=== PATIENT | female | born 1985 | race Caucasian/White ===

== ENCOUNTER 2016-07-15 02:20 | Inpatient (IN) | payer OTHER ==
[~2016-07-15] VITALS: Ht 162.6 cm; Wt 79.4 kg
[2016-07-15] VITALS (7 sets, daily range): BP systolic 100–122; BP diastolic 50–59; PULSE 74–104; RESP 16–20; Ht 162.6 cm; Wt 79.4 kg
[~2016-07-15 02:20] MED LIST: CLON1TAB3 PO; LAMO100T PO; LURA40TA PO
[2016-07-15] MEDS ORDERED: PREN1TAB79 PO (03:03)
[2016-07-15] MEDS ORDERED: FOLI0.8C PO (03:03)
[2016-07-15] MEDS ORDERED: FERR325C PO (03:03)
[2016-07-15] MEDS ORDERED: OXYTOCIN 30 UNITS/LR 500 ML IV PRN (03:30)
[2016-07-15] MEDS ORDERED: LIDOCAINE 1% (MPF) 30 ML INJ INJ PRN (03:30)
[2016-07-15] MEDS ORDERED: IBUPROFEN 600 MG TAB PO PRN (03:30)
[2016-07-15] MEDS ORDERED: BUTORPHANOL 2 MG INJ IV PRN (03:30)
[2016-07-15] MEDS ORDERED: METHYLERGONOVINE 0.2 MG INJ IM PRN (03:30)
[2016-07-15] MEDS ORDERED: MISOPROSTOL 200 MCG TAB PR PRN (03:30)
[2016-07-15] MEDS ORDERED: OXYTOCIN 30 UNITS/LR 500 ML IV SCH ×3 (03:30→10:00)
[2016-07-15] MEDS ORDERED: CARBOPROST 250 MCG INJ IM PRN (03:30)
[2016-07-15] MEDS ORDERED: LACTATED RINGER'S 1,000 ML IV PRN (03:30)
[2016-07-15 03:58] LABS: BASOPHIL # 0.1 10^3/ul (0.0-0.1); BASOPHILS % 0.4 % (0.0-2.0); EOSINOPHILS # 0.2 10^3/ul (0.0-0.5); EOSINOPHILS % 1.4 % (0.0-7.0); HEMATOCRIT 35.8 % (37.0-47.0); HEMOGLOBIN 11.9 g/dl (12.0-16.0); LYMPHOCYTES # 2.4 10^3/ul (0.8-2.9); LYMPHOCYTES % 17.3 % (15.0-51.0); MEAN CORPUSCULAR HEMOGLOBIN 27.7 pg (29.0-33.0); MEAN CORPUSCULAR HGB CONC 33.4 g/dl (32.0-37.0); MEAN CORPUSCULAR VOLUME 83.1 fl (82.0-101.0); MEAN PLATELET VOLUME 8.6 fl (7.4-10.4); MONOCYTE # 0.9 10^3/ul (0.3-0.9); MONOCYTES % 6.8 % (0.0-11.0); NEUTROPHIL # 10.2 10^3/ul (1.6-7.5); NEUTROPHILS % 74.1 % (39.0-77.0); PLATELET COUNT 239 10^3/UL (140-440); RED BLOOD COUNT 4.31 10^6/ul (4.20-5.40); RED CELL DISTRIBUTION WIDTH 14.6 % (11.5-14.5); UNCORRECTED WBC 13.8 10^3/ul (4.8-10.8); WHITE BLOOD COUNT 13.8 10^3/ul (4.8-10.8)
[2016-07-15 04:06] LABS: CONDITION 1; LH ANALYZER COMMENTS 1
[2016-07-15 04:08] LABS: INR 1.01; PARTIAL THROMBOPLASTIN TIME 27.1 Sec (25.0-35.0); PROTIME 13.3 Sec (12.2-14.2)
[2016-07-15 04:15] LABS: GLUCOSE 87 mg/dl (70-220)
--- NOTE | 2016-07-15 05:59 | TRIAGE ---
OB Triage Datetime Report Generated by CPN: 07/15/2016 05:59 Datetime: 07/15/2016 05:00 Stage of : Labor Maternal Assessment Level of Consciousness: Fully Conscious DTR's/Clonus: DTRs 2+; No Clonus Headache: Denies Breath Sounds, Left: Clear and Equal Breath Sounds, Right: Clear and Equal Nausea/Vomiting: Denies RUQ Epigastric Pain: Denies Labor Evaluation Frequency: 2-3 Monitor Mode: External Duration (sec)2399: 60-70 Quality: Moderate Pattern: Normal: <= 5 Contractions in 10 Minutes Resting Tone [place]: Relaxed Heart Rate FHR Baseline Rate: 135 Monitor Mode: External US FHR Baseline Changes: No Baseline Change Variability: Moderate 6-25 bpm Accelerations: 15X15 Decelerations: None Category: Category I Datetime: 07/15/2016 04:00 Stage of : Labor Assessment Type: Admission Assessment Maternal Assessment Level of Consciousness: Fully Conscious DTR's/Clonus: DTRs 2+; No Clonus Headache: Denies Blurred Vision: No Respiratory Effort: Unlabored; Regular Rhythm; Equal Expansion Breath Sounds, Left: Clear and Equal Breath Sounds, Right: Clear and Equal Nausea/Vomiting: Denies RUQ Epigastric Pain: Denies Lower Extremities Edema: None Degree: None Upper Extremities Edema: None Degree: None Facial Edema: None Temperature Route: Oral Fall Risk Assessment History of Falling: (0) No Secondary Diagnosis: (0) No Ambulatory Aid: (0) Bedrest/Nurse Assist IV Therapy: (0) No Gait: (0) Normal/Bedrest/Immobile Mental Status: (0) Oriented to Own Ability Fall Score: 0 Fall Risk Score Definition: No Risk: No action required Labor Evaluation Frequency: 2-4 Monitor Mode: External Duration (sec)2399: 60-70 Quality: Moderate Pattern: Normal: <= 5 Contractions in 10 Minutes Resting Tone [place]: Relaxed Heart Rate FHR Baseline Rate: 135 Monitor Mode: External US FHR Baseline Changes: No Baseline Change Variability: Moderate 6-25 bpm Accelerations: 15X15 Decelerations: None Category: Category I Datetime: 07/15/2016 03:00 Labor Evaluation Frequency: Irregular Monitor Mode: External Duration (sec)2399: 40-50 Quality: Mild Pattern: Normal: <= 5 Contractions in 10 Minutes Resting Tone [place]: Relaxed Heart Rate FHR Baseline Rate: 130 Monitor Mode: External US Variability: Minimal - Undetectable to <=5 bpm Accelerations: 15X15 (Annotations: x1) Decelerations: None Category: Category II Datetime: 07/15/2016 02:57 Stage of : OB Triage Datetime: 07/15/2016 02:49 Vaginal Exam Dilatation (cms): 1.5 Datetime: 07/15/2016 02:47 Vaginal Exam Dilatation (cms): 1.5 Effacement (%): 60 Station: -2 Exam By: BRENNAN Fernando Membrane Status: Meconium Membranes Ruptured Date/Time: 07/15/2016 01:30 Membranes Rupture Method: Spontaneous Amniotic Fluid Color: Heavy Meconium Amniotic Fluid Amount: Large Amniotic Fluid Odor: Normal Cervix, Consistency: Moderate Cervix, Position: Posterior Datetime: 07/15/2016 02:44 Stage of : OB Triage Temperature Route: Oral Pain Assessment Pain Scale: 7 Pain Presence: Intermittent Pain Type: Cramping; Contraction Pain Location: Abdomen; Back Pain Relief Measures: Comfort Measures Datetime: 07/15/2016 02:40 Stage of : OB Triage Assessment Type: Triage Time of Arrival: 07/15/2016 02:20 EGA: 39.1 Arrived By: Wheelchair Arrived From: Home Chief Complaint: SROM @0130 with uc's q3-5mins Movement: Present Contractions: Regular Time Contractions Began: 07/15/2016 01:30 Contractions: q3-5mins Rupture of Membranes: Ruptured Vaginal Bleeding: None Vaginal Discharge: Present Abdominal Trauma: Not Applicable Patient Complaints: Contractions; Cramping; Back Pain; Other Additional Patient Complaints: SROM Time Provider Notified: 07/15/2016 02:57 Provider Notified: Initial Plan: EFM x2, SVE Maternal Assessment Level of Consciousness: Fully Conscious DTR's/Clonus: DTRs 2+; No Clonus Headache: Denies Blurred Vision: No Respiratory Effort: Unlabored; Regular Rhythm; Equal Expansion Breath Sounds, Left: Clear and Equal Breath Sounds, Right: Clear and Equal Nausea/Vomiting: Denies RUQ Epigastric Pain: Denies Lower Extremities Edema: None Degree: None Upper Extremities Edema: None Degree: None Facial Edema: None Fall Risk Assessment History of Falling: (0) No Secondary Diagnosis: (0) No Ambulatory Aid: (0) Bedrest/Nurse Assist IV Therapy: (0) No Gait: (0) Normal/Bedrest/Immobile Mental Status: (0) Oriented to Own Ability Fall Score: 0 Fall Risk Score Definition: No Risk: No action required Monitor Mode: External Contraction Comments: [place] applied Heart Rate FHR Baseline Rate: 130 Monitor Mode: External US Comments: EFM applied
[2016-07-15] MEDS ORDERED: FENTAnyl 2MCG/ML-ROPIV 0.2% 100 ML ONE (08:00)
[2016-07-15] MEDS: LACTATED RINGER'S 1,000 ML IV SCH ×2 (08:43→11:07)
[2016-07-15] MEDS: FENTAnyl 2MCG/ML-ROPIV 0.2% 100 ML BAG EPI SCH ×3 (09:45→18:02)
[2016-07-15] MEDS ORDERED: NALOXONE (0.4 MG/ML) INJ IV PRN (10:00)
[2016-07-15] MEDS ORDERED: DIPHENHYDRAMINE 50 MG INJ IV PRN (10:00)
[2016-07-15] MEDS ORDERED: ONDANSETRON 4 MG INJ IV PRN (10:00)
[2016-07-15] MEDS ORDERED: DEXTROSE 5%-LR 1,000 ML IV PRN (13:30)
--- NOTE | 2016-07-15 19:58 | HP ---
Date/Time of Note Date/Time of Note DATE: 07/15/16 TIME: 19:45 OB - History Hx of Present Free Text/Dictation 30yo A2 to triage after srom (poss mec stained) with u.c known to have gdm bs controlled with diet hx of x2 tx for chlamydia whether reinfected ? admitted for expectant management Estimated Due Date: Jul 21, 2016 : 3 Para: 0 Spontaneous : 0 Therapeutic : 2 Care: Good Care Ultrasounds: Normal mid trimester US Obstetrical Complications: Gestational Diabetes Medical Complications: Genitourinary (chlamydia infection) Past Family/Social History * Past Medical, Surgical, Family and Obstetric Histories reviewed from chart. Blood Type: O+ Rubella: immune RPR/VDRL: Negative GBS Status: Negative HBsAG: Negative OB Admission Exam Vital Signs Vital Signs Vital Signs Date Time Temp Pulse Resp B/P Pulse Ox O2 Delivery O2 Flow Rate FiO2 07/15/16 03:05 97.7 78 20 109/53 Room Air Physical Exam HEENT: WNL Heart: Rhythm Normal Lungs: Clear, Equal Abdomen: WNL Extremities: Normal Reflexes: Normal Cervical Dilatation: 1cm Effacement: 50% Station: -2 Amniotic Fluid: Thin Meconium Heart Rate: 130's Decelerations: No Decelerations Varibility: Minimum Contractions on Admission: >10 Minutes Apart Intensity: Mild Last 72 hourBlood Glucose Bedside Glucose - 72 Hours Test 07/15/16 09:12 07/15/16 13:06 07/15/16 17:03 Bedside Glucose 105mg/dL (70-220) 87mg/dL (70-220) 107mg/dL (70-220) Last 72 hours Lab Results CBC & BMP 07/15/16 03:20 OB Assessment/Plan Reason for admission: other Other Assessment: iup 39w srom in early labor Plan: Expectant Management MARTIR CAMACHO MD Jul 15, 2016 19:55
--- NOTE | 2016-07-15 20:39 | LDN ---
Date/Time of Note Date/Time of Note DATE: 07/15/16 TIME: 20:35 Delivery Summary Placenta Delivered: Spontaneously Meconium: Thick Perineum intact?: No Perineal laceration repair: mle no laceration Anesthesia type: Local Estimated blood loss: 200 Sponge & Needle done & correct: Yes All needle counts correct: Yes Any foreign bodies felt in the: No Problems: Delivery Information Sex Sex: female Apgars 1 Minute: 8 5 Minute: 9 Suctioning Nose & mouth suctioned at jamaal: Yes Delee suction performed: No Umbilical Cord Umbilical cord with: 3 Vessels Cord presentations: no nuchal cord Cord Blood was obtained: Yes Mother & Baby Disposition Disposition Mom & Baby to Maternity; Good: Yes Mom transferred to: Other () Baby to NICU: No MARTIR CAMACHO MD Jul 15, 2016 20:38
[2016-07-16] MEDS ORDERED: OXYCODONE/ASPIRIN (4.88/325) TAB PO PRN
[2016-07-16] MEDS ORDERED: OXYTOCIN 30 UNITS/LR 500 ML IV PRN
[2016-07-16] MEDS ORDERED: MISOPROSTOL 200 MCG TAB PR PRN
[2016-07-16] MEDS ORDERED: CARBOPROST 250 MCG INJ IM PRN
[2016-07-16] MEDS ORDERED: METHYLERGONOVINE 0.2 MG INJ IM PRN
[2016-07-16] MEDS ORDERED: ZOLPIDEM 5 MG TAB PO PRN
[2016-07-16] MEDS ORDERED: LANOLIN 7 GM TUBE TOP PRN
[2016-07-16] MEDS: OXYCODONE/ASPIRIN (4.88/325) TAB PO PRN ×5 (00:02→19:40)
[2016-07-16] MEDS: WITCH HAZEL/GLYCERIN PAD PR PRN (00:03)
[2016-07-16] MEDS: BENZOCAINE 20% 56 ML SPRAY TOP PRN (00:03)
[2016-07-16 04:10] VITALS: BP 128/56; PULSE 75; RESP 20
[2016-07-16] MEDS: IBUPROFEN 600 MG TAB PO SCH ×5 (05:29→23:47)
[2016-07-16 07:46] LABS: BASOPHILS % 0.1 % (0.0-2.0); EOSINOPHILS % 0.1 % (0.0-7.0); HEMATOCRIT 30.5 % (37.0-47.0); HEMOGLOBIN 10.3 g/dl (12.0-16.0); LYMPHOCYTES # 1.9 10^3/ul (0.8-2.9); MEAN CORPUSCULAR HEMOGLOBIN 28.2 pg (29.0-33.0); MEAN CORPUSCULAR HGB CONC 33.8 g/dl (32.0-37.0); MEAN CORPUSCULAR VOLUME 83.5 fl (82.0-101.0); MEAN PLATELET VOLUME 7.8 fl (7.4-10.4); MONOCYTE # 1.2 10^3/ul (0.3-0.9); MONOCYTES % 5.8 % (0.0-11.0); NEUTROPHIL # 18.4 10^3/ul (1.6-7.5); PLATELET COUNT 219 10^3/UL (140-440); RED BLOOD COUNT 3.66 10^6/ul (4.20-5.40); RED CELL DISTRIBUTION WIDTH 14.6 % (11.5-14.5); UNCORRECTED WBC 21.6 10^3/ul (4.8-10.8); WHITE BLOOD COUNT 21.6 10^3/ul (4.8-10.8)
[2016-07-16 07:56] LABS: CONDITION 1; LH ANALYZER COMMENTS 1
[2016-07-16 08:15] VITALS: BP 100/69; PULSE 86; RESP 20
[2016-07-16] MEDS: SENNA/DOCUSATE NA (8.6MG/50MG) TAB PO SCH ×2 (10:00→21:23)
[2016-07-16 11:52] VITALS: BP 99/57; PULSE 70; RESP 19
[2016-07-16 12:57] LABS: OPIATES Negative (NEGATIVE)
[2016-07-16 12:58] LABS: BARBITURATES NEGATIVE (NEGATIVE); BENZODIAZEPINES NEGATIVE (NEGATIVE); CANNABINOIDS NEGATIVE (NEGATIVE)
[2016-07-16 12:59] LABS: COCAINE NEGATIVE (NEGATIVE)
[2016-07-16 17:35] VITALS: BP 103/63; PULSE 95; RESP 20
--- NOTE | 2016-07-16 17:58 | PN ---
Date/Time of Note Date/Time of Note DATE: 07/16/16 TIME: 17:57 OB Subjective Subjective Subjective no c/o OB Objective Objective Objective vss afebrile fundus firm non tender lochia min ext neg OB Assessment/Plan Other Assessment: stable post vaginal delivery Other plan: d/s home in am MARTIR CAMACHO MD Jul 16, 2016 17:58
[2016-07-16 19:40] VITALS: BP 120/63; PULSE 80; RESP 18
[2016-07-17] MEDS: OXYCODONE/ASPIRIN (4.88/325) TAB PO PRN ×2 (00:46→09:03)
[2016-07-17 03:45] VITALS: BP 108/55; PULSE 72; RESP 19
[2016-07-17] MEDS: IBUPROFEN 600 MG TAB PO SCH ×2 (05:37→12:43)
[2016-07-17 06:29] LABS: BASOPHIL # 0.1 10^3/ul (0.0-0.1); BASOPHILS % 0.4 % (0.0-2.0); EOSINOPHILS # 0.3 10^3/ul (0.0-0.5); HEMATOCRIT 30.1 % (37.0-47.0); HEMOGLOBIN 10.1 g/dl (12.0-16.0); LYMPHOCYTES # 3.6 10^3/ul (0.8-2.9); LYMPHOCYTES % 27.7 % (15.0-51.0); MEAN CORPUSCULAR HEMOGLOBIN 28.2 pg (29.0-33.0); MEAN CORPUSCULAR HGB CONC 33.7 g/dl (32.0-37.0); MEAN CORPUSCULAR VOLUME 83.7 fl (82.0-101.0); MEAN PLATELET VOLUME 8.4 fl (7.4-10.4); MONOCYTE # 0.9 10^3/ul (0.3-0.9); MONOCYTES % 7.2 % (0.0-11.0); NEUTROPHIL # 8.2 10^3/ul (1.6-7.5); NEUTROPHILS % 62.7 % (39.0-77.0); PLATELET COUNT 202 10^3/UL (140-440); RED CELL DISTRIBUTION WIDTH 14.4 % (11.5-14.5)
[2016-07-17 06:43] LABS: CONDITION 1
[2016-07-17 08:00] VITALS: BP 110/58; PULSE 86; RESP 20
[2016-07-17] MEDS ORDERED: DIPHTH/TET/ACEL PERTUSS (ADULT) 0.5 ML VIAL IM* ONE (09:00)
[2016-07-17] MEDS: SENNA/DOCUSATE NA (8.6MG/50MG) TAB PO SCH (09:04)
--- NOTE | 2016-07-17 09:14 | PD.PPDC ---
[facility] Discharge Instruction Diagnosis Final Diagnosis: s/p normal vaginal delivery Condition Patient Condition: Stable Diet Diet: Resume Regular Diet Activity/Restrictions Activity: May Shower Restrictions: No Lifting No Sexual Activity Nothing in the Vagina No [place] No Tampons, douche Follow-up Follow-up with Physician: 6, Week/Weeks Return to clinic for [facility] Instructions: Fever greater than 101 Chills Worsening abdominal pain Excessive Vaginal Bleeding More than 2 pads per hour Unable to tolerate diet OB Instructions: Breast Tenderness Depression Blurried Vision Headache MARTIR CAMACHO MD Jul 17, 2016 09:14
--- NOTE | 2016-07-17 09:18 | DS ---
Date/Time of Note Date/Time of Note DATE: 07/17/16 TIME: 09:16 Obstetrical Discharge Record Final Diagnosis Final Diagnosis: Term delivered Vaginal Delivery Obstetrical Delivery: Spontaneous, Episiotomy, Repaired Complications Gestational Diabetes Augmentation: No Condition on Discharge Physical Assessment Last Vitals: vss afebrile Voiding: Yes Bowel Movement: Yes Breast: Soft, non-tender Episiotomy: ok Calf Tenderness: No Patient Condition: Stable MARTIR CAMACHO MD Jul 17, 2016 09:18
[2016-07-17] MEDS: BENZOCAINE 20% 56 ML SPRAY TOP PRN (10:44)
[2016-07-17] MEDS: WITCH HAZEL/GLYCERIN PAD PR PRN (10:44)
[2016-07-17 15:30] VITALS: BP 125/64; PULSE 83; RESP 20
== END 2016-07-17 16:40 | disposition home or self-care (01) | DRG 775 ==
LOC: L-D 02:20 → OBT 02:20 → L-D 02:57 → OBT 02:57 → L-D 09:39 → PP1 22:44
PROVIDERS: ADMIT Obstetrics & Gynecology; ATTEND Obstetrics & Gynecology
PROC: 10E0XZZ Delivery of Products of Conception, External Approach (ICD-10-PCS; principal; 2016-07-15)
PROC: 3E00X4Z Introduction of Serum, Toxoid and Vaccine into Skin and Mucous Membranes, External Approach (ICD-10-PCS; 2016-07-17)
DX: O24.429 Gestational diabetes mellitus in childbirth, unspecified control (principal); Z23 Encounter for immunization; Z3A.39 39 weeks gestation of pregnancy; Z37.0 Single live birth
CPT/HCPCS: 62319; 80307; 82947; 82962; 85025; 85610; 85730; 86592; 86900; 86901; 87340; 90715; 99464; G0463; J2590; J3010; J7120

== ENCOUNTER 2017-03-27 20:32 | Emergency (ER) | payer OTHER ==
[~2017-03-27] VITALS: Ht 162.6 cm; Wt 70.0 kg
[~2017-03-27 20:32] MED LIST changes: -CLON1TAB3 PO; +FERR325C PO; +FOLI0.8C PO; -LAMO100T PO; -LURA40TA PO; +PREN1TAB79 PO
[2017-03-27 20:39] VITALS: Ht 162.6 cm; Wt 70.0 kg
[2017-03-27] MEDS ORDERED: AMOX1TAB10 PO (21:24)
[2017-03-27] MEDS ORDERED: HYDR-906 PO (21:24)
[2017-03-27] MEDS ORDERED: DOCU-144 PO (21:25)
--- NOTE | 2017-03-27 21:31 | ERD ---
ER Documentation Chief Complaint Date/Time DATE: 03/27/17 TIME: 21:27 Chief Complaint RIGHT EAR PAIN, TOOTHACHE HPI Patient is a 31 year old female with friend presents with right sided dental pain x 1 week. States she has an appointment for the dentist but it's not for another 3 weeks. Denies fever or chills. States painful to apply pressure on that tooh. Denies difficulty breathing, speaking or swallowing. Denies face pain , eye pain, headache, dizziness. ROS All systems reviewed and are negative except as per history of present illness. Medications Home Meds Active Scripts Docusate Sodium* (Colace*) 100 Mg Capsule, 100 MG PO TID, #30 CAP Prov:TOMEKA MURCIA PA-C 03/27/17 Hydrocodone/Acetaminophen ([place] 5-325 Tablet) 1 Each Tablet, 1 TAB PO Q6H Y for PAIN, #7 TAB Prov:TOMEKA MURCIA PA-C 03/27/17 Amoxicillin/Potassium Clav (Amox-Clav 875-125 mg Tablet) 875-125 mg Tab, 1 TAB PO BID for 7 Days, #14 TAB Prov:TOMEKA MURCIA PA-C 03/27/17 Reported Medications Folic Acid (Folic Acid) 0.8 Mg Capsule, 0.8 MG PO DAILY, CAP 07/15/16 Ferrous Sulfate (Iron) 325 Mg Capsule.er, 325 MG PO DAILY, CAP 07/15/16 Vit W-Ca,Fe,FA(<1 mg) ( Vitamins) 1 Each Tablet, 1 EACH PO DAILY, TAB 07/15/16 Allergies Allergies: Coded Allergies: No Known Drug Allergies (Verified Allergy, Mild, 07/15/16) PMhx/Soc History of Surgery: Yes (NECK/LYMPH NODES) Anesthesia Reaction: No Hx Neurological Disorder: No Hx Respiratory Disorders: No Hx Cardiac Disorders: No Hx Psychiatric Problems: Yes (depression, schitrophrenia) Hx Miscellaneous Medical Probl: No Hx Alcohol Use: Yes (rarely) Hx Substance Use: Yes (marijuana, meth) Hx Tobacco Use: Yes FmHx Family History: No coronary disease, No diabetes, No other Physical Exam Vitals Vital Signs Date Time Temp Pulse Resp B/P Pulse Ox O2 Delivery O2 Flow Rate FiO2 03/27/17 20:39 98.2 91 20 124/57 98 Physical Exam GENERAL: Well-developed, well-nourished femaleAppears in no acute distress. HEAD: Normocephalic, atraumatic. EYES: Pupils are equally reactive bilaterally. EOMs grossly intact. No conjunctival erythema. ENT: Moist mucous membranes. No uvula deviation. No kissing tonsils. No exudates. pain to lower right molar with no signs of abscess or swelling. no mastoid tenderness. NECK: Supple. No lymphadenopathy or thyromegaly. No meningismus. negative kernig. negative brudinski. LUNG: Clear to auscultation bilaterally. No rhonchi, wheezing, rales or coarse breath sounds. HEART: Regular rate and rhythm. No murmurs, rubs or gallops. Extremities: Equal pulses bilaterally. No peripheral clubbing, cyanosis or edema. No unilateral leg swelling. NEUROLOGIC: Alert and oriented. Moving all four extremities. 5/5 strength in all extremities. Normal speech. Steady gait. SKIN: Normal color. Warm and dry. No rashes or lesions. Capillary refill < 2 seconds Procedures/MDM ER COURSE: I kept the patient and/or family informed of laboratory and diagnostic imaging results throughout the emergency room course. MEDICAL DECISION MAKING: This is a [31 year old female who presents with dental pain x 1 week Vital signs were reviewed. Patient is afebrile. Patient is not hypoxic. Low suspicion for dental abscess, mastoiditis, peritonsillar abscess, sepsis. DISCHARGE: At this time, patient is stable for discharge and outpatient management with no new complaints during the ER course. Patient was sent home with stephani calderon and to follow up with dentist. names of dentist given to patient. Patient will be discharged home with instructions to recheck for new or worsening symptoms such as fever, nausea, weakness, LOC and to follow up with primary care in the next 1-2 days. Patient was advised to return to the ER for any new or worsening symptoms. Plan was discussed and patient and/or family understands and agrees. Home instructions were given. Departure Diagnosis: Primary Impression: Pain, dental Condition: Stable Patient Instructions: Dental Pain Referrals: [facility] ([facility] walk in clinic) Additional Instructions: Call your primary care doctor TOMORROW for an appointment during the next 1-2 days.See the doctor sooner or return here if your condition worsens before your appointment time. TOMEKA MURCIA PA-C Mar 27, 2017 21:31
== END 2017-03-27 22:06 | disposition home or self-care (01) ==
LOC: FTE 20:32
DX: K08.89 Other specified disorders of teeth and supporting structures (principal)
CPT/HCPCS: 99284

== ENCOUNTER 2019-02-18 10:01 | Emergency (ER) | payer SELFPAY ==
[~2019-02-18] VITALS: Wt 60.0 kg
[~2019-02-18 10:01] MED LIST changes: +AMOX1TAB10 PO; +BEN25 PO; +DOCU-144 PO; +HYDR-4011 PO; +IBUP-1542 PO; +PRED20TA PO
[2019-02-18 10:15] VITALS: BP 116/56; PULSE 78; RESP 18
--- NOTE | 2019-02-18 10:31 | ERD ---
ER Documentation Chief Complaint Chief Complaint RIGHT THIGH POSSIBLE INSECT BITE HPI 33-year-old female presents ED complaining of a bug bite on her right thigh x2 days. She denies any fevers or chills. She denies any dyspnea or shortness of breath or signs of respiratory distress. She states that it itches and is slight tenderness. She read online that bug bites can get affected and she got concerned so she wanted to come to the emergency department to get an evaluation. She denies any other past medical history. ROS All systems reviewed and are negative except as per history of present illness. Medications Home Meds Active Scripts Ibuprofen* (Motrin*) 600 Mg Tab, 600 MG PO Q6H PRN for PAIN AND OR ELEVATED TEMP, #30 TAB Prov:DANK LOPEZ PA-C 02/18/19 Prednisone* (Prednisone*) 20 Mg Tab, 60 MG PO DAILY for 4 Days, TAB Prov:DANK LOPEZ PA-C 02/18/19 Diphenhydramine Hcl* (Benadryl*) 25 Mg Cap, 25 MG PO Q6 PRN for ITCHING/RASH, #30 TAB Prov:DANK LOPEZ PA-C 02/18/19 Docusate Sodium* (Colace*) 100 Mg Capsule, 100 MG PO TID, #30 CAP Prov:TOMEKA MURCIA PA-C 03/27/17 Hydrocodone/Acetaminophen ([place] 5-325 Tablet) 1 Each Tablet, 1 TAB PO Q6H PRN for PAIN, #7 TAB Prov:TOMEKA MURCIA PA-C 03/27/17 Amoxicillin/Potassium Clav (Amox-Clav 875-125 mg Tablet) 875-125 mg Tab, 1 TAB PO BID for 7 Days, #14 TAB Prov:TOMEKA MURCIA PA-C 03/27/17 Reported Medications Folic Acid (Folic Acid) 0.8 Mg Capsule, 0.8 MG PO DAILY, CAP 07/15/16 Ferrous Sulfate (Iron) 325 Mg Capsule.er, 325 MG PO DAILY, CAP 07/15/16 Vit W-Ca,Fe,FA(<1 mg) ( Vitamins) 1 Each Tablet, 1 EACH PO DAILY, TAB 07/15/16 Allergies Allergies: Coded Allergies: No Known Drug Allergies (Verified Allergy, Mild, 07/15/16) PMhx/Soc History of Surgery: Yes (NECK/LYMPH NODES) Anesthesia Reaction: No Hx Neurological Disorder: No Hx Respiratory Disorders: No Hx Cardiac Disorders: No Hx Psychiatric Problems: Yes (depression, schizophrenia) Hx Miscellaneous Medical Probl: No Hx Alcohol Use: Yes (rarely) Hx Substance Use: No Hx Tobacco Use: No Smoking Status: Former smoker FmHx Family History: No diabetes Physical Exam Vitals Vital Signs Date Temp Pulse Resp B/P (MAP) Pulse Ox O2 O2 Flow FiO2 Time Delivery Rate 02/18/19 98.1 78 18 116/56 99 10:15 (76) Physical Exam Const: No acute distress Head: Atraumatic Resp: Clear to auscultation bilaterally Cardio: Regular rate and rhythm Abd: Soft, non tender, non distended. Skin: Small 5 cm bug bite on the right anterior thigh. No bleeding, no discharge, no signs of infection Neur: Awake and alert Psych: Normal Mood and Affect Procedures/MDM ED COURSE: The patient was stable throughout ED course. I kept the patient informed of laboratory and diagnostic imaging results throughout the ED course. MEDICAL DECISION MAKING: Patient is a 33-year-old female presenting with a bug bite x1 to 2 days. H&P and other data not c/w emergent rash (eg. SJS/TEN, meningococcemia, Kaw[place]akis). I have low suspicion for any signs of infection. Bug bite is present and appears like it is healing well. No signs of infection. No discharge, slight erythema. Patient will be treated on outpatient basis with Benadryl and prednisone. Patient given strict return ED precautions if symptoms persist or worsen. All questions answered. Vital signs were reviewed. Patient is afebrile. Patient was not hypoxic. Patient was hemodynamically stable. Patient was told to follow up with primary care for further care and management. PRESCRIPTION: Benadryl, prednisone DISCHARGE: At this time, patient is stable for discharge and outpatient management. I have instructed the patient to follow-up with their primary care physician in 1-2 days. I have discussed with the patient the possibility of needing to see a specialist for further workup and imaging studies if symptoms persist. I have instructed the patient to promptly return to the ER for any new or worsening symptoms including increased pain, fever, nausea, vomiting, weakness or LOC. The patient expressed understanding of and agreement with this plan. All questions were answered. Home care instructions were provided. Disclaimer: Inadvertent spelling and grammatical errors are likely due to EHR/dictation software use and do not reflect on the overall quality of patient care. Also, please note that the electronic time recorded on this note does not necessarily reflect the actual time of the patient encounter. Departure Diagnosis: Primary Impression: Insect bite Encounter type: initial encounter Site of insect bite: thigh Laterality: right Qualified Codes: S70.361A - Insect bite (nonvenomous), right thigh, initial encounter; W57.XXXA - Bitten or stung by nonvenomous insect and other nonvenomous arthropods, initial encounter Condition: Good Patient Instructions: Insect Bite Referrals: [facility] YOU HAVE RECEIVED A MEDICAL SCREENING EXAM AND THE RESULTS INDICATE THAT YOU DO NOT HAVE A CONDITION THAT REQUIRES URGENT TREATMENT IN THE EMERGENCY DEPARTMENT. FURTHER EVALUATION AND TREATMENT OF YOUR CONDITION CAN WAIT UNTIL YOU ARE SEEN IN YOUR DOCTORS OFFICE WITHIN THE NEXT 1-2 DAYS. IT IS YOUR RESPONSIBILITY TO MAKE AN APPOINTMENT FOR FOLOW-UP CARE. IF YOU HAVE A PRIMARY DOCTOR --you should call your primary doctor and schedule an appointment IF YOU DO NOT HAVE A PRIMARY DOCTOR YOU CAN CALL OUR PHYSICIAN REFERRAL HOTLINE AT IF YOU CAN NOT AFFORD TO SEE A PHYSICIAN YOU CAN CHOSE FROM THE FOLLOWING COMMUNITY [facility] [address] [facility] [address] [facility] [address] [facility] [address] [facility] [facility] [address] [facility]. [facility]. [address] [facility] [facility] YOU HAVE RECEIVED A MEDICAL SCREENING EXAM AND THE RESULTS INDICATE THAT YOU DO NOT HAVE A CONDITION THAT REQUIRES URGENT TREATMENT IN THE EMERGENCY DEPARTMENT. FURTHER EVALUATION AND TREATMENT OF YOUR CONDITION CAN WAIT UNTIL YOU ARE SEEN IN YOUR DOCTORS OFFICE WITHIN THE NEXT 1-2 DAYS. IT IS YOUR RESPONSIBILITY TO MAKE AN APPOINTMENT FOR FOLOW-UP CARE. IF YOU HAVE A PRIMARY DOCTOR --you should call your primary doctor and schedule and appointment IF YOU DO NOT HAVE A PRIMARY DOCTOR YOU CAN CALL OUR PHYSICIAN REFERRAL HOTLINE AT . IF YOU CAN NOT AFFORD TO SEE A PHYSICIAN YOU CAN CHOSE FROM THE FOLLOWING [facility] INSTITUTIONS: [facility] [address] [place] [address] [facility] [address] [place] [address] [facility] [address] [place] [address] Additional Instructions: Call your primary care doctor TOMORROW for an appointment during the next 1-2 days.See the doctor sooner or return here if your condition worsens before your appointment time. DANK LOPEZ PA-C Feb 18, 2019 10:31
== END 2019-02-18 11:00 | disposition home or self-care (01) ==
LOC: FTE 10:01
DX: S70.361A Insect bite (nonvenomous), right thigh, initial encounter (principal); W57.XXXA Bitten or stung by nonvenomous insect and other nonvenomous arthropods, initial encounter; Y92.9 Unspecified place or not applicable
CPT/HCPCS: 99283